=== PATIENT | female | born 1955 | race Caucasian/White ===

== ENCOUNTER 2017-10-02 07:18 | Day surgery (SDC) | payer OTHER ==
[2017-10-02] MEDS ORDERED: FENTAnyl 50 MCG/ML VIAL (10:44)
[2017-10-02] MEDS ORDERED: MIDAZOLAM 1 MG/ML 2 ML INJ ×3 (10:44)
== END 2017-10-02 13:49 | disposition home or self-care (01) ==
LOC: GIL 07:18
DX: Z12.11 Encounter for screening for malignant neoplasm of colon (principal); K21.9 Gastro-esophageal reflux disease without esophagitis; K29.60 Other gastritis without bleeding; K64.8 Other hemorrhoids; D12.6 Benign neoplasm of colon, unspecified; I10 Essential (primary) hypertension; E11.9 Type 2 diabetes mellitus without complications
CPT/HCPCS: 43239; 82962; 88305

== ENCOUNTER → 2018-01-08 | Outpatient (CLI) | payer OTHER ==
[2018-01-08] MEDS: SOD CHLORIDE 0.9% 100 ML (13:40)
[2018-01-08] MEDS: IODIXANOL LOCM 100 ML BTL (13:41)
== END | disposition home or self-care (01) ==
LOC: C/S 12:05
DX: R07.9 Chest pain, unspecified (principal)
CPT/HCPCS: 75571; 75574